=== PATIENT | female | born 1950 | race Caucasian/White ===

== ENCOUNTER → 2020-05-15 | Outpatient (CLI) | payer OTHER, MEDICAID ==
[2020-05-15 13:33] LABS: ALBUMIN 3.2 g/dL (3.4-5.0); ALBUMIN/GLOBULIN RATIO 0.8 (1.0-1.7); CALCIUM 8.8 mg/dL (8.5-10.1); CREATININE 1.1 mg/dL (0.6-1.0); GFR 49.2; POTASSIUM 4.2 mmol/L (3.5-5.1); TOTAL BILIRUBIN 0.3 mg/dL (0.2-1.0)
[2020-05-15 13:34] LABS: CHOLESTEROL/HDL RATIO 3.6
== END | disposition home or self-care (01) ==
LOC: LAB 12:30
PROVIDERS: ATTEND Nurse Practitioner
DX: E78.5 Hyperlipidemia, unspecified (principal); R06.09 Other forms of dyspnea
CPT/HCPCS: 36415; 80053; 80061